=== PATIENT | male | born 1975 | race Caucasian/White ===

== ENCOUNTER 2018-09-07 14:54 | Emergency (ER) | payer SELFPAY ==
[2018-09-07] MEDS ORDERED: ASPIRIN 81 MG TABLET, CHEWABLE PO ONE (15:47)
[2018-09-07] MEDS ORDERED: FUROSEMIDE INJ/PF 40 MG/4 ML SDV IV ONE (15:49)
--- NOTE | 2018-09-07 15:51 | ER Document Report ---
ED Medical Screen (RME) - General Chief Complaint: CHF Exacerbation Stated Complaint: SWELLING IN LEGS Time Seen by Provider: 09/07/18 15:42 Mode of Arrival: Ambulatory Information source: Patient Notes: 43-year-old male with a history of coronary artery disease, hyper lipidemia, congestive heart failure, COPD presents emergency department with bilateral lower extremity edema that is been worsening over the last month. Patient states that he used to be on Lasix. He states that he has been unable to take the medication because he does not have insurance. Patient is a company tanker truck driver. Is complaining of left lower extremity pain. He is also having shortness of breath with exertion. Denies chest pain. He has had a previous history of DVT in his right lower extremity. He states that he was on anticoagulants. He is not currently on any anticoagulants. I have greeted and performed a rapid initial assessment of this patient. A comprehensive ED assessment and evaluation of the patient, analysis of test results and completion of the medical decision making process will be conducted by additional ED providers. PHYSICAL EXAMINATION: GENERAL: Well-appearing, well-nourished and in no acute distress. HEAD: Atraumatic, normocephalic. EYES: Pupils equal round extraocular movements intact, conjunctiva are normal. ENT: Nares patent NECK: Normal range of motion LUNGS: No respiratory distress. Rhonchi appreciated. Musculoskeletal: 1+ pitting edema. L calf tenderness to palpation. NEUROLOGICAL: Normal speech, normal gait. PSYCH: Normal mood, normal affect. SKIN: Warm, Dry, normal turgor, no rashes or lesions noted. TRAVEL OUTSIDE OF THE [place] IN LAST 30 DAYS: No - Related Data Allergies/Adverse Reactions: cyclobenzaprine [From Flexeril] Allergy (Verified 09/07/18 14:55) Penicillins Allergy (Verified 09/07/18 14:55) Past Medical History - Social History Chew tobacco use (# tins/day): No Frequency of alcohol use: None Drug Abuse: None Renal/ Medical History: Denies: Hx Peritoneal Dialysis Physical Exam - Vital signs Vitals: Temp Pulse Resp BP Pulse Ox 97.9 F 89 20 133/75 H 97 09/07/18 15:02 09/07/18 15:02 09/07/18 15:02 09/07/18 15:02 09/07/18 15:02 Course - Vital Signs Vital signs: Temp Pulse Resp BP Pulse Ox 97.9 F 89 20 133/75 H 97 09/07/18 15:02 09/07/18 15:02 09/07/18 15:02 09/07/18 15:02 09/07/18 15:02
[2018-09-07 16:17] LABS: ABSOLUTE EOSINOPHILS # (AUTO) 0.3 10^3/uL (0.0-0.6); ABSOLUTE LYMPHOCYTES (AUTO) 2.8 10^3/uL (0.5-4.7); ABSOLUTE MONOCYTES (AUTO) 0.5 10^3/uL (0.1-1.4); ABSOLUTE NEUT (AUTO) 2.8 10^3/uL (1.7-8.2); BASOPHILS % (AUTO) 0.7 % (0-2); EOSINOPHILS % (AUTO) 4.2 % (0-6); HEMATOCRIT 46.4 % (37.9-51.0); LYMPHOCYTES % (AUTO) 43.1 % (13-45); MEAN CORPUSCULAR HEMOGLOBIN 28.6 pg (27.0-33.4); MEAN CORPUSCULAR HGB CONC 34.6 g/dL (32.0-36.0); MEAN CORPUSCULAR VOLUME 83 fl (80-97); PLATELET COUNT 190 10^3/uL (150-450); RED BLOOD COUNT 5.61 10^6/uL (4.35-5.55); TOTAL CELLS COUNTED % (AUTO) 100 %; WHITE BLOOD COUNT 6.4 10^3/uL (4.0-10.5)
--- NOTE | 2018-09-07 16:36 | RADIOLOGY REPORT (SQ) ---
EXAM DESCRIPTION: CHEST SINGLE VIEW COMPLETED DATE/TIME: 09/07/2018 4:11 pm REASON FOR STUDY: shortness of breath COMPARISON: None. NUMBER OF VIEWS: One view. TECHNIQUE: Single frontal radiographic view of the chest acquired. LIMITATIONS: None. FINDINGS: LUNGS AND PLEURA: No consolidation, masses or pneumothorax. No pleural effusion. MEDIASTINUM AND HILAR STRUCTURES: No masses. Contour normal. HEART AND VASCULAR STRUCTURES: Heart normal in size. Normal vasculature. Prior CABG. BONES: No acute findings. HARDWARE: Sternotomy wires, upper most and lower most are fractured. . OTHER: No other significant finding. IMPRESSION: No acute findings. TECHNICAL DOCUMENTATION: JOB ID: [id number] [id number] 2010 [employer]- All Rights Reserved Reading location - IP/workstation name: [email or web address]
--- NOTE | 2018-09-07 16:39 | ER Document Report ---
ED Medical Screen (RME) - General Chief Complaint: CHF Exacerbation Stated Complaint: SWELLING IN LEGS Time Seen by Provider: 09/07/18 15:42 Mode of Arrival: Ambulatory Notes: Negative DVT study. TRAVEL OUTSIDE OF THE [place] IN LAST 30 DAYS: No - Related Data Allergies/Adverse Reactions: cyclobenzaprine [From Flexeril] Allergy (Verified 09/07/18 15:52) Penicillins Allergy (Verified 09/07/18 15:52) Past Medical History - Social History Chew tobacco use (# tins/day): No Frequency of alcohol use: None Drug Abuse: None - Past Medical History Cardiac Medical History: Reports: Hx Heart Attack, Hx Hypercholesterolemia, Hx Hypertension Renal/ Medical History: Denies: Hx Peritoneal Dialysis GI Medical History: Reports: Hx Gastroesophageal Reflux Disease Musculoskeltal Medical History: Reports Hx Arthritis Past Surgical History: Reports: Hx Cardiac Catheterization, Hx Open Heart Surgery - cabgx2 Physical Exam - Vital signs Vitals: Temp Pulse Resp BP Pulse Ox 97.9 F 89 20 133/75 H 97 09/07/18 15:02 09/07/18 15:02 09/07/18 15:02 09/07/18 15:02 09/07/18 15:02 Course - Vital Signs Vital signs: Temp Pulse Resp BP Pulse Ox 97.9 F 89 20 133/75 H 97 09/07/18 15:02 09/07/18 15:02 09/07/18 15:02 09/07/18 15:02 09/07/18 15:02 - Laboratory Result Diagrams: 09/07/18 16:00 09/07/18 16:00 Laboratory results interpreted by me: 09/07/18 16:00 RBC 5.61 H
[2018-09-07 16:42] LABS: ALANINE AMINOTRANSFERASE 20 U/L (21-72); ALBUMIN 4.5 g/dL (3.5-5.0); ALKALINE PHOSPHATASE 74 U/L (38-126); ANION GAP 9 (5-19); ASPARTATE AMINO TRANSFERASE 31 U/L (17-59); BILIRUBIN,DIRECT 0.3 mg/dL (0.0-0.4); BILIRUBIN,TOTAL 0.5 mg/dL (0.2-1.3); BLOOD UREA NITROGEN 14 mg/dL (7-20); CALCIUM 8.7 mg/dL (8.4-10.2); CARBON DIOXIDE 29 mmol/L (22-30); CHLORIDE 105 mmol/L (98-107); GLUCOSE 95 mg/dL (75-110); POTASSIUM 4.2 mmol/L (3.6-5.0); SODIUM 142.6 mmol/L (137-145); TOTAL PROTEIN 7.3 g/dL (6.3-8.2)
[2018-09-07 16:51] LABS: NT PRO BNP 28 pg/mL (<125); TROPONIN I < 0.012 ng/mL
[2018-09-07 17:02] VITALS: BP 120/81
--- NOTE | 2018-09-07 17:06 | RADIOLOGY REPORT (SQ) ---
EXAM DESCRIPTION: VENOUS UNILATERAL LOWER COMPLETED DATE/TIME: 09/07/2018 4:56 pm REASON FOR STUDY: left leg pain COMPARISON: None. TECHNIQUE: Dynamic and static brown scale and color images acquired of the left leg venous system. Se lected spectral images acquired with additional compression and augmentation maneuvers. The contralat eral common femoral vein and saphenofemoral junction were also imaged. Images stored on PACS. LIMITATIONS: None. FINDINGS: COMMON FEMORAL: Normal phasicity, compression and augmentation. No visualized echogenic ma terial on brown scale. No defects on color images. FEMORAL: Normal compression and augmentation. No visualized echogenic material on brown scale. No defe cts on color images. POPLITEAL: Normal compression, augmentation. No visualized echogenic material on brown scale. No defec ts on color images. CALF VESSELS: Normal compression, augmentation. No visualized echogenic material on brown scale. No de fects on color images. GSV and SSV: Normal compression, augmentation. No visualized echogenic material on brown scale. No def ects on color images. ANY DEEP VENOUS INSUFFICIENCY: Not evaluated. ANY EVIDENCE OF POPLITEAL CYST: No. OTHER: No other significant finding. CONTRALATERAL COMMON FEMORAL VEIN AND SAPHENOFEMORAL JUNCTION: Normal phasicity, compression and augmentation. No visualized echogenic material on brown scale. No de fects on color images. IMPRESSION: NO EVIDENCE DVT OR SVT IN THE LEFT LEG. TECHNICAL DOCUMENTATION: JOB ID: [id number] [place]-[id number] 2010 [employer]- All Rights Reserved Reading location - IP/workstation name: [email or web address]
--- NOTE | 2018-09-07 20:06 | EKG REPORT ---
SEVERITY:- ABNORMAL ECG - SINUS RHYTHM NONSPECIFIC INTRAVENTRICULAR CONDUCTION DELAY : Confirmed by: Evangelista Betts 07-Sep-2018 20:04:28
--- NOTE | 2018-09-12 04:55 | ER Document Report ---
Entered by ODILON CLEMENS SCRIBE 09/07/18 1716 Acting as scribe for:GASTON NAVAROR DO ED General - General Chief Complaint: CHF Exacerbation Stated Complaint: SWELLING IN LEGS Time Seen by Provider: 09/07/18 15:42 Primary Care Provider: [facility] [Provider Group] - Follow up as needed Mode of Arrival: Ambulatory Information source: Patient Notes: Patient is a 43-year-old male with CHF, CAD, hyperlipidemia, COPD, sleep apnea and a history of CABG presents to the emergency department complaining of swelling in his right lower extremity worsening the last few months. Patient states he is prescribed Lasix but no longer has insurance and has been unable to pay for his medications. He also complains of orthopnea. TRAVEL OUTSIDE OF THE [place] IN LAST 30 DAYS: No - Related Data Allergies/Adverse Reactions: cyclobenzaprine [From Flexeril] Allergy (Verified 09/07/18 15:52) Penicillins Allergy (Verified 09/07/18 15:52) Past Medical History - General Information source: Patient - Social History Smoking Status: Current Every Day Smoker Chew tobacco use (# tins/day): No Frequency of alcohol use: None Drug Abuse: None Family History: Reviewed & Not Pertinent Patient has suicidal ideation: No Patient has homicidal ideation: No - Past Medical History Cardiac Medical History: Reports: Hx Heart Attack, Hx Hypercholesterolemia, Hx Hypertension GI Medical History: Reports: Hx Gastroesophageal Reflux Disease Musculoskeletal Medical History: Reports Hx Arthritis Past Surgical History: Reports: Hx Cardiac Catheterization, Hx Open Heart Surgery - cabgx2 Review of Systems - Review of Systems Constitutional: No symptoms reported EENT: No symptoms reported Cardiovascular: No symptoms reported Respiratory: See HPI Gastrointestinal: No symptoms reported Genitourinary: No symptoms reported Male Genitourinary: No symptoms reported Musculoskeletal: See HPI Skin: No symptoms reported Hematologic/Lymphatic: No symptoms reported Neurological/Psychological: No symptoms reported -: Yes All other systems reviewed and negative Physical Exam - Vital signs Vitals: Temp Pulse Resp BP Pulse Ox 97.9 F 89 20 133/75 H 97 09/07/18 15:02 09/07/18 15:02 09/07/18 15:02 09/07/18 15:02 09/07/18 15:02 - Notes Notes: GENERAL: Alert, interacts well. No acute distress. HEAD: Normocephalic, atraumatic. EYES: Pupils equal, round, and reactive to light. Extraocular movements intact. ENT: Oral mucosa moist, tongue midline. NECK: Full range of motion. Supple. Trachea midline. LUNGS: Trace crackles in RLL. No respiratory distress. 100% oxygen saturation on room air on monitor, good waveform, normal oxygenation per my interpretation. HEART: Regular rate and rhythm. No murmurs, gallops, or rubs. ABDOMEN: Soft, non-tender. Non-distended. Bowel sounds present in all 4 quadrants. EXTREMITIES: Moves all 4 extremities spontaneously. Trace pitting edema to the RLE, no edema to the LLE. Radial and dorsalis pedis pulses 2/4 bilaterally. No cyanosis. Bypass saphenous vein graft scar to the left calf, well-healed. NEUROLOGICAL: Alert and oriented x3. Normal speech. PSYCH: Normal affect, normal mood. SKIN: Warm, dry, normal turgor. No rashes or lesions noted. Course - Re-evaluation Re-evalutation: 09/07/18 17:11 CBC unremarkable, CMP unremarkable, cardiac enzymes negative, proBNP 28, venous duplex ultrasound was negative for DVT, chest x-ray shows no acute process. No evidence of acute CHF flare, no evidence of heart attack. Patient's chest pain has been going on for the past 2 years since he had open heart surgery. No indication for second set of cardiac enzymes. Patient will be discharged home with a prescription for his usual dose of Lasix. Patient is actually encouraged to start out by taking 40 mg 1 tablet once a day and then only increasing to twice a day if he needs to. After being given 40 mg here he has put out 900 mL's of urine. Patient will be discharged to home. [facility] He is agreeable to this plan. - Vital Signs Vital signs: Temp Pulse Resp BP Pulse Ox 97.9 F 89 19 120/81 100 09/07/18 15:02 09/07/18 15:02 09/07/18 17:00 09/07/18 16:13 09/07/18 17:00 - Laboratory Result Diagrams: 09/07/18 16:00 09/07/18 16:00 Laboratory results interpreted by me: 09/07/18 09/07/18 16:00 16:00 RBC 5.61 H ALT 20 L - EKG Interpretation by Me Additional EKG results interpreted by me: 09/07/18 17:12 EKG shows sinus rhythm at a rate of 76, slight left axis deviation, nonspecific interventricular conduction delay with a QRS of 114, no ST segment elevations or depressions, no T wave inversions per my interpretation. Discharge - Discharge Clinical Impression: Peripheral edema, Medication refill Congestive heart failure Qualifiers: Heart failure type: unspecified Heart failure chronicity: chronic Qualified Code(s): I50.9 - Heart failure, unspecified Condition: Stable Disposition: HOME, SELF-CARE Additional Instructions: Congestive Heart Failure You have been diagnosed as having congestive heart failure (CHF). CHF occurs when the heart is unable to pump blood efficiently, leading to fluid buildup in the veins and lungs. Typical symptoms are swelling of the legs, shortness of breath on minor exertion, and fatigue. CHF is treated with salt restriction, medicine to eliminate excess water and salt from the body, and medication to help the heart contract more efficiently. Eliminate added salt and salty foods in your diet. Decrease your activity until excess fluid has been eliminated. It will also be helpful to raise the head of your bed so you can sleep more easily. Keep a daily record of your weight. This will help your physician monitor your progress. Once extra water has been eliminated, light aerobic exercise daily -- such as walking -- will be helpful (unless your physician has told you to restrict activity for other reasons). Be sure to follow up with the physician as instructed. Contact the doctor at once if you worsen in any way. Prescriptions: Furosemide [Lasix 40 mg Tablet] 40 mg PO BID #60 tablet Referrals: [facility] [Provider Group] - Follow up as needed Scribe Attestation: 09/12/18 04:55 I personally performed the services described in the documentation, reviewed and edited the documentation which was dictated to the scribe in my presence, and it accurately records my words and actions. I personally performed the services described in the documentation, reviewed and edited the documentation which was dictated to the scribe in my presence, and it accurately records my words and actions.
== END 2018-09-07 17:42 | disposition home or self-care (01) ==
LOC: ER 14:54
DX: R60.9 Edema, unspecified (principal); M79.89 Other specified soft tissue disorders; E78.00 Pure hypercholesterolemia, unspecified; I50.9 Heart failure, unspecified; I11.0 Hypertensive heart disease with heart failure; Z95.1 Presence of aortocoronary bypass graft; Z88.0 Allergy status to penicillin; I25.2 Old myocardial infarction
CPT/HCPCS: 93005; 99284; 96374; 36415; 85025; 80053; 84484; 83880; 93971; 71045; 93010; J1940

== ENCOUNTER 2018-11-09 12:48 | Emergency (ER) | payer SELFPAY ==
--- NOTE | 2018-11-09 13:04 | ER Document Report ---
ED Medical Screen (RME) - General Chief Complaint: Leg Swelling Stated Complaint: BILATERAL LEG SWELLING Time Seen by Provider: 11/09/18 12:57 Mode of Arrival: Ambulatory Information source: Patient Notes: Patient is a 43-year-old male who presents to the emergency department with complaints of chest pain, shortness of breath and lower extremity swelling. Patient reports the chest pain shortness of breath have been ongoing for some time, states the symptoms are intermittent. He was seen here 6 weeks ago for peripheral edema, after a negative workup he was sent home on Lasix. He states that he is out of his Lasix of the peripheral edema has increased. Patient reports he had open heart surgery in 2017 and has not had any formal follow-up as he states he does not have insurance and has been unable to get into [facility] due to work schedules. Exam: Heart sounds S1-S2 present with no ectopy noted. Lung sounds are clear to auscultation bilaterally. I have greeted and performed a rapid initial assessment of this patient. A comprehensive ED assessment and evaluation of the patient, analysis of test results and completion of the medical decision making process will be conducted by additional ED providers. Dictation of this chart was performed using voice recognition software; therefore, there may be some unintended grammatical errors. TRAVEL OUTSIDE OF THE [place] IN LAST 30 DAYS: No - Related Data Allergies/Adverse Reactions: cyclobenzaprine [From Flexeril] Allergy (Verified 11/09/18 12:50) Penicillins Allergy (Verified 11/09/18 12:50) Past Medical History - Past Medical History Cardiac Medical History: Reports: Hx Heart Attack, Hx Hypercholesterolemia, Hx Hypertension Renal/ Medical History: Denies: Hx Peritoneal Dialysis GI Medical History: Reports: Hx Gastroesophageal Reflux Disease Musculoskeltal Medical History: Reports Hx Arthritis Past Surgical History: Reports: Hx Cardiac Catheterization, Hx Open Heart Surgery - cabg-2017 Physical Exam - Vital signs Vitals: Temp Pulse Resp BP Pulse Ox 98.1 F 74 16 122/65 97 11/09/18 12:55 11/09/18 12:55 11/09/18 12:55 11/09/18 12:55 11/09/18 12:55 Course - Vital Signs Vital signs: Temp Pulse Resp BP Pulse Ox 98.1 F 74 16 122/65 97 11/09/18 12:55 11/09/18 12:55 11/09/18 12:55 11/09/18 12:55 11/09/18 12:55
[2018-11-09 13:38] LABS: ABSOLUTE EOSINOPHILS # (AUTO) 0.2 10^3/uL (0.0-0.6); ABSOLUTE LYMPHOCYTES (AUTO) 2.4 10^3/uL (0.5-4.7); ABSOLUTE MONOCYTES (AUTO) 0.4 10^3/uL (0.1-1.4); ABSOLUTE NEUT (AUTO) 2.5 10^3/uL (1.7-8.2); BASOPHILS % (AUTO) 0.6 % (0-2); EOSINOPHILS % (AUTO) 3.5 % (0-6); HEMATOCRIT 42.4 % (37.9-51.0); HEMOGLOBIN 14.9 g/dL (13.5-17.0); LYMPHOCYTES % (AUTO) 44.1 % (13-45); MEAN CORPUSCULAR HGB CONC 35.2 g/dL (32.0-36.0); MEAN CORPUSCULAR VOLUME 82 fl (80-97); MONOCYTES % (AUTO) 6.9 % (3-13); PLATELET COUNT 168 10^3/uL (150-450); RED BLOOD COUNT 5.15 10^6/uL (4.35-5.55); RED CELL DISTRIBUTION WIDTH 14.3 % (11.5-14.0); SEGMENTED NEUTROPHILS % (AUTO) 44.9 % (42-78); TOTAL CELLS COUNTED % (AUTO) 100 %; WHITE BLOOD COUNT 5.5 10^3/uL (4.0-10.5)
[2018-11-09 13:50] LABS: ALANINE AMINOTRANSFERASE 21 U/L (21-72); ALBUMIN 3.9 g/dL (3.5-5.0); ALKALINE PHOSPHATASE 64 U/L (38-126); ANION GAP 7 (5-19); ASPARTATE AMINO TRANSFERASE 16 U/L (17-59); BILIRUBIN,DIRECT 0.2 mg/dL (0.0-0.4); BILIRUBIN,TOTAL 0.4 mg/dL (0.2-1.3); BLOOD UREA NITROGEN 17 mg/dL (7-20); CALCIUM 9.3 mg/dL (8.4-10.2); CARBON DIOXIDE 27 mmol/L (22-30); CHLORIDE 107 mmol/L (98-107); GLUCOSE 114 mg/dL (75-110); POTASSIUM 3.9 mmol/L (3.6-5.0); SODIUM 140.6 mmol/L (137-145); TOTAL PROTEIN 6.5 g/dL (6.3-8.2)
--- NOTE | 2018-11-09 14:06 | RADIOLOGY REPORT (SQ) ---
EXAM DESCRIPTION: CHEST SINGLE VIEW COMPLETED DATE/TIME: 11/09/2018 1:39 pm REASON FOR STUDY: chest pain, shortness of breath, swelling COMPARISON: Chest x-ray 09/07/2018. EXAM PARAMETERS: NUMBER OF VIEWS: One view. TECHNIQUE: Single frontal radiographic view of the chest acquired. RADIATION DOSE: NA LIMITATIONS: None. FINDINGS: LUNGS AND PLEURA: No consolidation, pneumothorax or pleural effusion. MEDIASTINUM AND HILAR STRUCTURES: No masses. Contour normal. HEART AND VASCULAR STRUCTURES: Heart normal in size. Normal vasculature. BONES: No acute findings. HARDWARE: Sternotomy wires are present. IMPRESSION: NO ACUTE RADIOGRAPHIC FINDING IN THE CHEST. TECHNICAL DOCUMENTATION: JOB ID: [id number] 2010 [employer]- All Rights Reserved Reading location - IP/workstation name: [email or web address]
--- NOTE | 2018-11-09 15:02 | ER Document Report ---
ED Extremity Problem, Lower - General Chief Complaint: Leg Swelling Stated Complaint: BILATERAL LEG SWELLING Time Seen by Provider: 11/09/18 12:57 Mode of Arrival: Ambulatory Information source: Patient TRAVEL OUTSIDE OF THE [place] IN LAST 30 DAYS: No - HPI Patient complains to provider of: Swelling Notes: Patient is here with complaints of swelling to the bilateral lower extremities. The patient states that he has history of congestive heart failure, has had prior open heart surgery, bypass surgery. He is supposed to be taking 40 mg of Lasix twice daily, due to not being able to get into see a primary care doctor because he is on the road for work he has run out of his Lasix. States that he had been taking it once a day instead of twice a day and now has none left and the swelling has gotten somewhat worse. He states that he occasionally has some chest pain and shortness of breath which is chronic for him. He denies any change in his chest pain or shortness of breath at this time. He denies any history of DVT or PE. He denies any abdominal pain. No nausea, vomiting, diarrhea. No fever. He currently denies any chest pain at this specific time. He denies any other specific complaints at this time. - Related Data Allergies/Adverse Reactions: cyclobenzaprine [From Flexeril] Allergy (Verified 11/09/18 12:50) Penicillins Allergy (Verified 11/09/18 12:50) Past Medical History - General Information source: Patient - Social History Smoking Status: Current Every Day Smoker Family History: Reviewed & Not Pertinent Patient has suicidal ideation: No Patient has homicidal ideation: No - Past Medical History Cardiac Medical History: Reports: Hx Heart Attack, Hx Hypercholesterolemia, Hx Hypertension Renal/ Medical History: Denies: Hx Peritoneal Dialysis GI Medical History: Reports: Hx Gastroesophageal Reflux Disease Musculoskeletal Medical History: Reports Hx Arthritis Past Surgical History: Reports: Hx Cardiac Catheterization, Hx Open Heart Surgery - cabg-2017 Review of Systems - Review of Systems -: Yes All other systems reviewed and negative Physical Exam - Vital signs Vitals: Temp Pulse Resp BP Pulse Ox 98.1 F 74 16 122/65 97 11/09/18 12:55 11/09/18 12:55 11/09/18 12:55 11/09/18 12:55 11/09/18 12:55 - Notes Notes: GENERAL: alert, cooperative, nontoxic, no distress. HEAD: normocephalic, atraumatic EYES: conjunctiva pink without discharge, no external redness or swelling. EARS: no external swelling, no external redness NOSE: atraumatic, no external swelling MOUTH/THROAT: mucous membranes moist and pink, posterior pharynx without erythema, swelling, exudate. No trismus or drooling. NECK: soft, supple, full range of motion, no meningismus. CHEST: no distress, lungs clear and equal throughout. No wheezing, rales, r honchi. CARDIAC: regular rate and rhythm, no murmur, normal capillary refill, normal pulses. +1 pitting edema to the bilateral lower extremities. ABDOMEN: Soft, nontender. BACK: full range of motion, no CVA tenderness. EXTREMITIES: full range of motion of all extremities. No redness, no tenderness . NEURO: alert and oriented x 3, no focal deficits, full range of motion of all extremities. PYSCH: appropriate mood, affect. Patient is cooperative. SKIN: pink, warm, dry, no rash. Course - Re-evaluation Re-evalutation: 11/09/18 14:57 Patient is nontoxic-appearing with stable vitals. Patient is here with complaints of leg swelling. The patient has a history of congestive heart failure and is supposed to be taking 40 mg of Lasix twice daily. He is only been taking it once a day for the last several weeks because he was trying to ration his medication and he is currently out. He is having some increasing swelling at this time. He has some occasional intermittent chronic chest pain and shortness of breath but denies any specific chest pain currently. EKG is unremarkable for any ischemic changes. Lab work is unremarkable for any changes. Chest x-ray is clear. Is noted to have some +1 pitting edema to the bilateral lower extremities. There is no redness or tenderness. Patient has a heart score of 4. Based on the fact that he is been having some intermittent chest pain or shortness of breath with his heart score 4, I recommend admission to the hospital. Current emergency workup is negative. The patient states he would rather not be admitted. We discussed the risks and benefits of leaving without further evaluation, the patient verbalized understanding this and is willing to leave AGAINST MEDICAL ADVICE. He is of sound mind to make this decision at this time. Patient will be leaving AGAINST MEDICAL ADVICE. Patient has been described risks and benefits of leaving. He verbalized an understanding of this. He is of sound mind to make this decision. The patient's emergency department workup and current diagnosis were explained to the patient and or family. Follow-up instructions were provided. Medications if prescribed were discussed. Instructions for when to return to the emergency department including specific worrisome symptoms were discussed with the patient and/or family. - Vital Signs Vital signs: Temp Pulse Resp BP Pulse Ox 98.1 F 74 16 122/65 97 11/09/18 12:55 11/09/18 12:55 11/09/18 12:55 11/09/18 12:55 11/09/18 12:55 - Laboratory Result Diagrams: 11/09/18 13:10 11/09/18 13:10 Laboratory results interpreted by me: 11/09/18 11/09/18 13:10 13:10 RDW 14.3 H Glucose 114 H AST 16 L - Diagnostic Test Radiology reviewed: Image reviewed, Reports reviewed - Negative chest x-ray - EKG Interpretation by Me EKG shows normal: Sinus rhythm, Intervals, QRS Complexes, ST-T Waves Rate: Normal When compared to previous EKG there are: Other - Rate is 65. No ST elevation or depression, no STEMI. Discharge - Discharge Clinical Impression: Peripheral edema Chest pain Qualifiers: Chest pain type: unspecified Qualified Code(s): R07.9 - Chest pain, unspecified Condition: Stable Disposition: AGAINST MEDICAL ADVICE Instructions: Congestive Heart Failure ([facility]), Chest Pain of Unclear Cause ([facility]) Additional Instructions: Take medication as prescribed. Follow-up with primary care at the next available appointment. Return the emergency department immediately for worsening chest pain, shortness of breath, difficulty breathing or for any furth er concerns. Prescriptions: Furosemide [Lasix 40 mg Tablet] 40 mg PO BID #60 tablet Forms: Smoking Cessation Education Referrals: [facility] [Provider Group] - Follow up as needed
[2018-11-09 15:33] VITALS: BP 124/75
--- NOTE | 2018-11-10 23:40 | EKG REPORT ---
SEVERITY:- ABNORMAL ECG - SINUS RHYTHM IVCD, CONSIDER ATYPICAL RBBB : Confirmed by: Evangelista Betts 10-Nov-2018 23:39:01
== END 2018-11-09 15:36 | disposition left against medical advice (07) ==
LOC: ER 12:48
DX: I11.0 Hypertensive heart disease with heart failure (principal); I50.9 Heart failure, unspecified; R60.0 Localized edema; T50.1X6A Underdosing of loop [high-ceiling] diuretics, initial encounter; Z91.128 Patient's intentional underdosing of medication regimen for other reason; Z91.14 Patient's other noncompliance with medication regimen; R06.02 Shortness of breath; R07.9 Chest pain, unspecified; G89.29 Other chronic pain; I25.2 Old myocardial infarction; Z95.5 Presence of coronary angioplasty implant and graft; Z88.8 Allergy status to other drugs, medicaments and biological substances; F17.200 Nicotine dependence, unspecified, uncomplicated; Z88.0 Allergy status to penicillin; Z53.20 Procedure and treatment not carried out because of patient's decision for unspecified reasons
CPT/HCPCS: 36415; 71045; 80053; 84484; 85025; 93005; 93010; 99284

== ENCOUNTER 2018-12-15 17:00 | Emergency (ER) | payer SELFPAY ==
--- NOTE | 2018-12-15 18:26 | ER Document Report ---
ED Medical Screen (RME) - General Chief Complaint: Medication Refill Stated Complaint: MED REFILL Time Seen by Provider: 12/15/18 18:16 Mode of Arrival: Ambulatory Information source: Patient Notes: Patient presents requesting a refill of Lasix 40 mg twice a day. Patient states that he does not have a primary doctor and is out of his medication. Patient does complain of chest pain shortness of breath leg swelling. Patient also states that he was out in the heat a lot today because their car broke down. Patient has a history of COPD, CHF, MO, hypertension and dyslipidemia. Patient has had bypass surgery as well. I have greeted and performed a rapid initial assessment of this patient. A comprehensive ED assessment and evaluation of the patient, analysis of test results and completion of the medical decision making process will be conducted by additional ED providers. TRAVEL OUTSIDE OF THE [place] IN LAST 30 DAYS: No - Related Data Allergies/Adverse Reactions: cyclobenzaprine [From Flexeril] Allergy (Verified 12/15/18 17:01) Penicillins Allergy (Verified 12/15/18 17:01) Past Medical History - Past Medical History Cardiac Medical History: Reports: Hx Heart Attack, Hx Hypercholesterolemia, Hx Hypertension Renal/ Medical History: Denies: Hx Peritoneal Dialysis GI Medical History: Reports: Hx Gastroesophageal Reflux Disease Musculoskeltal Medical History: Reports Hx Arthritis Past Surgical History: Reports: Hx Cardiac Catheterization, Hx Open Heart Surgery - [id number] Physical Exam - Vital signs Vitals: Temp Pulse Resp BP Pulse Ox 98.1 F 96 17 145/82 H 96 12/15/18 17:07 12/15/18 17:07 12/15/18 17:07 12/15/18 17:07 12/15/18 17:07 - Extremities General lower extremity: Edema - Bilateral lower extremities Course - Vital Signs Vital signs: Temp Pulse Resp BP Pulse Ox 98.1 F 96 17 145/82 H 96 12/15/18 17:07 12/15/18 17:07 12/15/18 17:07 12/15/18 17:07 12/15/18 17:07
[2018-12-15 19:38] LABS: ABSOLUTE BASOPHILS # (AUTO) 0.1 10^3/uL (0.0-0.2); ABSOLUTE EOSINOPHILS # (AUTO) 0.3 10^3/uL (0.0-0.6); ABSOLUTE LYMPHOCYTES (AUTO) 3.1 10^3/uL (0.5-4.7); ABSOLUTE MONOCYTES (AUTO) 0.4 10^3/uL (0.1-1.4); ABSOLUTE NEUT (AUTO) 3.4 10^3/uL (1.7-8.2); BASOPHILS % (AUTO) 0.7 % (0-2); EOSINOPHILS % (AUTO) 3.8 % (0-6); HEMATOCRIT 46.1 % (37.9-51.0); HEMOGLOBIN 15.7 g/dL (13.5-17.0); LYMPHOCYTES % (AUTO) 42.8 % (13-45); MEAN CORPUSCULAR HEMOGLOBIN 28.2 pg (27.0-33.4); MEAN CORPUSCULAR VOLUME 83 fl (80-97); MONOCYTES % (AUTO) 5.2 % (3-13); PLATELET COUNT 215 10^3/uL (150-450); RED BLOOD COUNT 5.56 10^6/uL (4.35-5.55); SEGMENTED NEUTROPHILS % (AUTO) 47.5 % (42-78); TOTAL CELLS COUNTED % (AUTO) 100 %; WHITE BLOOD COUNT 7.3 10^3/uL (4.0-10.5)
[2018-12-15 19:52] LABS: ALANINE AMINOTRANSFERASE 21 U/L (21-72); ALBUMIN 4.3 g/dL (3.5-5.0); ALKALINE PHOSPHATASE 68 U/L (38-126); ANION GAP 10 (5-19); ASPARTATE AMINO TRANSFERASE 19 U/L (17-59); BILIRUBIN,DIRECT 0.2 mg/dL (0.0-0.4); BILIRUBIN,TOTAL 0.4 mg/dL (0.2-1.3); BLOOD UREA NITROGEN 14 mg/dL (7-20); CALCIUM 9.1 mg/dL (8.4-10.2); CARBON DIOXIDE 27 mmol/L (22-30); CHLORIDE 104 mmol/L (98-107); CREATINE KINASE 154 U/L (55-170); GLUCOSE 105 mg/dL (75-110); POTASSIUM 4.1 mmol/L (3.6-5.0); SODIUM 141.1 mmol/L (137-145); TOTAL PROTEIN 7.2 g/dL (6.3-8.2)
--- NOTE | 2018-12-15 20:02 | RADIOLOGY REPORT (SQ) ---
EXAM DESCRIPTION: CHEST 2 VIEWS COMPLETED DATE/TIME: 12/15/2018 7:40 pm REASON FOR STUDY: cp, dyspnea COMPARISON: 11/09/2018 and earlier EXAM PARAMETERS: NUMBER OF VIEWS: two views TECHNIQUE: Digital Frontal and Lateral radiographic views of the chest acquired. RADIATION DOSE: NA LIMITATIONS: none FINDINGS: LUNGS AND PLEURA: No opacities, masses or pneumothorax. No pleural effusion. MEDIASTINUM AND HILAR STRUCTURES: No masses or contour abnormalities. HEART AND VASCULAR STRUCTURES: Heart normal size. No evidence for failure. BONES: No acute findings. HARDWARE: Median sternotomy wires and mediastinal clips. OTHER: No other significant finding. IMPRESSION: NO ACUTE RADIOGRAPHIC FINDING IN THE CHEST. TECHNICAL DOCUMENTATION: JOB ID: [id number] [employer]- All Rights Reserved Reading location - IP/workstation name: [email or web address]
[2018-12-15 20:09] LABS: NT PRO BNP 14 pg/mL (<125)
[2018-12-15 20:10] LABS: TROPONIN I < 0.012 ng/mL
[2018-12-15] MEDS ORDERED: FUROSEMIDE 40 MG TABLET PO ONE (21:01)
[2018-12-15 21:04] VITALS: BP 136/72
--- NOTE | 2018-12-15 21:04 | ER Document Report ---
ED General - General Chief Complaint: Shortness Of Breath Stated Complaint: MED REFILL Time Seen by Provider: 12/15/18 18:16 Mode of Arrival: Ambulatory Notes: Patient is a 43-year-old male past medical history of coronary artery disease, congestive heart failure, presents complaining of increasing bilateral lower ext remity edema since he ran out of his furosemide a week ago. The patient also notes that he has chronic chest pain shortness of breath that is not new or different today. He states this is a daily, cramping, mild to moderate throbbing pain in the middle of his chest. Nothing improves or worsens the chest discomfort. He states he has associated shortness of breath at all times with this and again that this is not new or different today. States that his primary reason for the visit to the emergency department today is to get a refill of his furosemide as he does not have access to a primary care physician at this time. Denies fever or constitutional symptoms. No unilateral dominance to the swelling in the legs. No history of DVT or pulmonary embolus. TRAVEL OUTSIDE OF THE [place] IN LAST 30 DAYS: No - Related Data Allergies/Adverse Reactions: cyclobenzaprine [From Flexeril] Allergy (Verified 12/15/18 17:01) Penicillins Allergy (Verified 12/15/18 17:01) Past Medical History - General Information source: Patient - Social History Smoking Status: Current Every Day Smoker Chew tobacco use (# tins/day): No Frequency of alcohol use: Rare Drug Abuse: None Lives with: Spouse/Significant other Family History: Reviewed & Not Pertinent Patient has suicidal ideation: No Patient has homicidal ideation: No - Past Medical History Cardiac Medical History: Reports: Hx Heart Attack, Hx Hypercholesterolemia, Hx Hypertension Renal/ Medical History: Denies: Hx Peritoneal Dialysis GI Medical History: Reports: Hx Gastroesophageal Reflux Disease Musculoskeletal Medical History: Reports Hx Arthritis Past Surgical History: Reports: Hx Cardiac Catheterization, Hx Open Heart Surgery - [id number] Review of Systems - Review of Systems Notes: Constitutional: Negative for fever. HENT: Negative for sore throat. Eyes: Negative for visual changes. Cardiovascular: Positive for chest pain. Respiratory: Positive for shortness of breath. Gastrointestinal: Negative for abdominal pain, vomiting or diarrhea. Genitourinary: Negative for dysuria. Musculoskeletal: Negative for back pain. Skin: Negative for rash. Neurological: Negative for headaches, weakness or numbness. 10 point ROS negative except as marked above and in HPI. Physical Exam - Vital signs Vitals: Temp Pulse Resp BP Pulse Ox 98.1 F 96 17 145/82 H 96 12/15/18 17:07 12/15/18 17:07 12/15/18 17:07 12/15/18 17:07 12/15/18 17:07 Interpretation: Hypertensive Notes: PHYSICAL EXAMINATION: GENERAL: Well-appearing, well-nourished and in no acute distress. HEAD: Atraumatic, normocephalic. EYES: Pupils equal round and reactive to light, extraocular movements intact, sclera anicteric, conjunctiva are normal. ENT: nares patent, oropharynx clear without exudates. Moist mucous membranes. NECK: Normal range of motion, supple without lymphadenopathy LUNGS: Breath sounds clear to auscultation bilaterally and equal. No wheezes rales or rhonchi. HEART: Regular rate and rhythm without murmurs ABDOMEN: Soft, nontender, normoactive bowel sounds. No guarding, no rebound. No masses appreciated. EXTREMITIES: Normal range of motion, 2+ pitting edema in the bilateral lower extremity that is equal and symmetric. No cyanosis. NEUROLOGICAL: No focal neurological deficits. Moves all extremities spontaneously and on command. PSYCH: Normal mood, normal affect. SKIN: Warm, Dry, normal turgor, no rashes or lesions noted. Course - Re-evaluation Re-evalutation: 12/15/18 21:01 Patient presents due to concerns of being out of his furosemide. He has had increased bilateral lower extremity edema also reported chest pain shortness of breath in triage. The patient is both know however that ever since he had bypass surgery he chronically has chest pain or shortness of breath and that this is not new or different today. His EKG is without ischemic changes. Troponin normal. BNP normal. Chest x-ray without infiltrates. Do not suspect ACS, overt volume overload causing pulmonary edema or any other life-threatening pathology at this time. The patient has been provided a refill of his furosemide for the next 2 months until he is able to get into his primary care physician. He and his are very much so in agreement with this plan. I do not believe serial cardiac markers are indicated given the long-standing duration of the patient's chest discomfort and his report that this is nothing new or different and that he has this kind of pain every day for the past several years. At this time will discharge with return precautions and follow-up recommendations. Verbal discharge instructions given a the bedside and opportunity for questions given. Medication warnings reviewed. Patient is in agreement with this plan and has verbalized understanding of return precautions and the need for primary care follow-up in the next 24-72 hours. - Vital Signs Vital signs: Temp Pulse Resp BP Pulse Ox 97.6 F 84 18 136/72 H 99 12/15/18 21:04 12/15/18 21:04 12/15/18 21:04 12/15/18 21:04 12/15/18 21:04 - Laboratory Result Diagrams: 12/15/18 19:15 12/15/18 19:15 Laboratory results interpreted by me: 12/15/18 19:15 RBC 5.56 H - Diagnostic Test Radiology reviewed: Image reviewed, Reports reviewed Radiology results interpreted by me: 12/15/18 21:02 Chest x-ray: No acute infiltrate or evidence of pulmonary edema - EKG Interpretation by Me Additional EKG results interpreted by me: 12/15/18 21:02 Sinus rhythm, rate 80. No ST elevations or depressions. QTC is 448. Discharge - Discharge Clinical Impression: Bilateral lower extremity edema, Chronic chest pain Condition: Good Disposition: HOME, SELF-CARE Additional Instructions: Please take your medications as prescribed. Return to the emergency department if you have worsening of chest discomfort, shortness of breath, vomiting, become unable to exert yourself secondary to shortness of breath or pain, have worsening of the swelling her legs, or have any other symptoms that are worrisome to you. Prescriptions: Furosemide [Lasix 40 mg Tablet] 40 mg PO BID #30 tablet Forms: Special Work Note
--- NOTE | 2018-12-15 23:38 | EKG REPORT ---
SEVERITY:- ABNORMAL ECG - SINUS RHYTHM NONSPECIFIC INTRAVENTRICULAR CONDUCTION DELAY : Confirmed by: Kaushik Sierra MD 15-Dec-2018 23:37:19
== END 2018-12-15 21:30 | disposition home or self-care (01) ==
LOC: ER 17:00
DX: I11.0 Hypertensive heart disease with heart failure (principal); I50.9 Heart failure, unspecified; T50.1X6A Underdosing of loop [high-ceiling] diuretics, initial encounter; Z91.128 Patient's intentional underdosing of medication regimen for other reason; Z91.14 Patient's other noncompliance with medication regimen; Z76.0 Encounter for issue of repeat prescription; R60.0 Localized edema; R07.9 Chest pain, unspecified; G89.29 Other chronic pain; R06.02 Shortness of breath; I25.2 Old myocardial infarction; F17.200 Nicotine dependence, unspecified, uncomplicated; Z88.8 Allergy status to other drugs, medicaments and biological substances; Z88.0 Allergy status to penicillin; Z95.1 Presence of aortocoronary bypass graft
CPT/HCPCS: 36415; 71046; 80053; 82550; 83880; 84484; 85025; 93005; 93010; 99283